=== PATIENT | male | born 1950 | race Caucasian/White ===

== ENCOUNTER 2019-12-13 08:19 | Inpatient (IN) ==
[2019-12-13] MEDS ORDERED: 0.9 % Sodium Chloride 1,000 ML IVC ONE (08:38)
[2019-12-13 09:06] LABS: Basophils % 0.4 %; Eosinophils # 0.1 K/mcL (0.0-0.6); Eosinophils % 1.2 %; Hematocrit 30.6 % (37.5-50.1); Hemoglobin 9.5 g/dL (12.9-16.9); Immature Granulocytes % 0.4 % (0-4); Lymphocytes # 1.4 K/mcL (0.6-4.6); Lymphocytes % 17.7 %; Mean Corpuscular Volume 90.3 fL (83.0-100.0); Mean Platelet Volume 9.7 fL (9.4-12.4); Monocytes # 0.6 K/mcL (0.0-1.3); Neutrophils # 5.9 K/mcL (1.6-8.9); Platelet Count 214 K/mcL (140-400); Red Blood Count 3.39 M/mcL (4.19-5.50); Red Cell Distribution Width 14.4 % (11.5-14.5); Segmented Neutrophils % 73.3 %
[2019-12-13 09:14] LABS: INR 1.2; Prothrombin Time 13.7 Seconds (9.4-12.1)
[2019-12-13 09:16] LABS: Activated Partial Thrombo Time 36.8 Seconds (26.0-36.0)
[2019-12-13 09:28] LABS: Albumin 3.9 g/dL (3.5-5.7); Albumin/Globulin Ratio 1.4 (1.1-2.2); Bilirubin,Direct 0.2 mg/dL (0.0-0.2); Bilirubin,Indirect 0.5 mg/dL (0.0-1.0); Bilirubin,Total 0.7 mg/dL (0.3-1.0); Calcium 9.5 mg/dL (8.6-10.3); Globulin 2.7 g/dL (2.4-3.5); Potassium 4.4 mEq/L (3.5-5.1); Total Protein 6.6 g/dL (6.4-8.9)
[2019-12-13] MEDS ORDERED: Lidocaine Jelly 11 ml Syringe ONE (10:29)
[2019-12-13] MEDS ORDERED: Ondansetron 4 MG/2 ML VIAL IVP PRN ×2 (10:55→14:21)
[2019-12-13] MEDS ORDERED: *HR* OxyCODONE Immed Rel 5 MG TABLET PO PRN (10:55)
[2019-12-13] MEDS ORDERED: Dexamethasone 4 MG/ML VIAL ONE (10:59)
[2019-12-13] MEDS ORDERED: *HR* Propofol 200 MG/20 ML VIAL IVP ONE (10:59)
[2019-12-13] MEDS ORDERED: *HR* Succinylcholine 200 MG/10 ML VIAL IVP ONE (10:59)
[2019-12-13] MEDS ORDERED: Lidocaine -MPF 2% 2 ML VIAL ONE (10:59)
[2019-12-13] MEDS ORDERED: ceFAZolin 3,000 MG in Water for inj. (sterile) 30 ML IVP ONE (11:26)
[2019-12-13] MEDS ORDERED: *HR* FentaNYL (PF) 100 MCG/2 ML VIAL ONE (11:31)
[2019-12-13] MEDS ORDERED: EPHEDrine 50 MG/ML VIAL ONE (11:47)
[2019-12-13] MEDS ORDERED: Isovue-300 50ML VIAL ONE (11:51)
[2019-12-13] MEDS ORDERED: CeFAZolin Syr 3,000MG/30 ML 3,000 MG/30 ML SYRINGE IVPB ONE (12:00)
[2019-12-13] MEDS ORDERED: Naloxone 0.4 MG/ML INJ IVP PRN (14:21)
[2019-12-13] MEDS: 0.9 % Sodium Chloride 1,000 ML IVC SCH (17:38)
[2019-12-13] MEDS: Pregabalin 75 MG CAPSULE PO SCH ×2 (17:38→21:56)
[2019-12-14 04:06] LABS: Basophils % 0.1 %; Eosinophils # 0.1 K/mcL (0.0-0.6); Eosinophils % 0.6 %; Hematocrit 26.4 % (37.5-50.1); Hemoglobin 8.3 g/dL (12.9-16.9); Immature Granulocytes % 0.5 % (0-4); Lymphocytes # 1.3 K/mcL (0.6-4.6); Lymphocytes % 13.6 %; Mean Corpuscular HGB Conc 31.4 g/dL (31.6-35.5); Mean Corpuscular Volume 89.2 fL (83.0-100.0); Mean Platelet Volume 10.1 fL (9.4-12.4); Monocytes # 0.5 K/mcL (0.0-1.3); Monocytes % 5.8 %; Neutrophils # 7.4 K/mcL (1.6-8.9); Platelet Count 194 K/mcL (140-400); Red Blood Count 2.96 M/mcL (4.19-5.50); Red Cell Distribution Width 14.4 % (11.5-14.5); Segmented Neutrophils % 79.4 %; White Blood Count 9.3 K/mcL (4.3-11.1)
[2019-12-14 04:22] LABS: Potassium 4.5 mEq/L (3.5-5.1)
[2019-12-14] MEDS: *HR* OxyCODONE Immed Rel 5 MG TABLET PO PRN ×2 (04:22→19:58)
[2019-12-14] MEDS: Pregabalin 75 MG CAPSULE PO SCH ×3 (08:26→22:35)
[2019-12-14] MEDS: lisinopriL 5 MG TABLET PO SCH (08:26)
[2019-12-14] MEDS: 0.9 % Sodium Chloride 1,000 ML IVC SCH ×2 (08:26→16:49)
[2019-12-14] MEDS: atenoloL 25 MG TABLET PO SCH (08:26)
[2019-12-14] MEDS: *HR* HYDROcodone/Acet 5/325 mg TABLET PO PRN (12:13)
[2019-12-14] MEDS ORDERED: *HR* Belladonna Alkaloids/Opium 30 MG RECTAL SUPPOSITORY RC PRN (22:22)
[2019-12-15] MEDS: *HR* HYDROcodone/Acet 5/325 mg TABLET PO PRN ×3 (01:03→21:40)
[2019-12-15] MEDS: 0.9 % Sodium Chloride 1,000 ML IVC SCH ×6 (01:04→20:12)
[2019-12-15 07:04] LABS: Basophils % 0.4 %; Eosinophils # 0.2 K/mcL (0.0-0.6); Eosinophils % 2.4 %; Hemoglobin 7.8 g/dL (12.9-16.9); Immature Granulocytes % 0.4 % (0-4); Lymphocytes # 2.4 K/mcL (0.6-4.6); Lymphocytes % 31.8 %; Mean Corpuscular Hemoglobin 27.1 pg (28.0-33.3); Mean Corpuscular Volume 90.3 fL (83.0-100.0); Mean Platelet Volume 10.2 fL (9.4-12.4); Monocytes # 0.4 K/mcL (0.0-1.3); Monocytes % 5.8 %; Neutrophils # 4.4 K/mcL (1.6-8.9); Nucleated Red Blood Cells 0.3 /100 WBC (0); Platelet Count 196 K/mcL (140-400); Red Blood Count 2.88 M/mcL (4.19-5.50); Red Cell Distribution Width 14.4 % (11.5-14.5); Segmented Neutrophils % 59.2 %; White Blood Count 7.4 K/mcL (4.3-11.1)
[2019-12-15 07:21] LABS: Calcium 8.8 mg/dL (8.6-10.3); Potassium 4.7 mEq/L (3.5-5.1)
[2019-12-15] MEDS: *HR* OxyCODONE Immed Rel 5 MG TABLET PO PRN ×2 (08:07→16:17)
[2019-12-15] MEDS: Pregabalin 75 MG CAPSULE PO SCH ×3 (08:08→21:34)
[2019-12-15] MEDS: atenoloL 25 MG TABLET PO SCH (08:09)
[2019-12-15] MEDS: lisinopriL 5 MG TABLET PO SCH (08:09)
[2019-12-15] MEDS ORDERED: Isovue-370 500 ML BOTTLE IVP ONE (09:26)
[2019-12-15] MEDS ORDERED: Heparin 1,000 UNITS/500 mL 500 ML ONE (10:38)
[2019-12-15] MEDS ORDERED: 0.9 % Sodium Chloride 500 ML ONE (10:38)
[2019-12-15] MEDS ORDERED: Isovue-300 50ML VIAL IVP ONE (11:40)
[2019-12-15] MEDS ORDERED: Acetaminophen 325 MG TABLET PO PRN (11:56)
[2019-12-16] MEDS: 0.9 % Sodium Chloride 1,000 ML IVC SCH ×2 (03:38→05:10)
[2019-12-16] MEDS: *HR* OxyCODONE Immed Rel 5 MG TABLET PO PRN ×2 (03:42→21:01)
[2019-12-16 04:27] LABS: Basophils % 0.3 %; Eosinophils # 0.2 K/mcL (0.0-0.6); Eosinophils % 2.5 %; Hematocrit 25.2 % (37.5-50.1); Hemoglobin 7.8 g/dL (12.9-16.9); Immature Granulocytes % 0.4 % (0-4); Lymphocytes # 1.7 K/mcL (0.6-4.6); Lymphocytes % 24.7 %; Mean Corpuscular Hemoglobin 27.9 pg (28.0-33.3); Mean Platelet Volume 9.9 fL (9.4-12.4); Monocytes # 0.5 K/mcL (0.0-1.3); Monocytes % 6.5 %; Neutrophils # 4.6 K/mcL (1.6-8.9); Platelet Count 208 K/mcL (140-400); Red Cell Distribution Width 14.4 % (11.5-14.5); Segmented Neutrophils % 65.6 %; White Blood Count 6.9 K/mcL (4.3-11.1)
[2019-12-16 04:43] LABS: Calcium 8.8 mg/dL (8.6-10.3); Potassium 4.5 mEq/L (3.5-5.1)
[2019-12-16] MEDS: Pregabalin 75 MG CAPSULE PO SCH ×3 (07:31→21:03)
[2019-12-16] MEDS: lisinopriL 5 MG TABLET PO SCH (07:31)
[2019-12-16] MEDS: atenoloL 25 MG TABLET PO SCH (07:31)
[2019-12-16] MEDS: Finasteride 5 MG TABLET PO SCH (07:32)
[2019-12-16] MEDS ORDERED: Thrombin (Bovine) 5,000 UNIT NAS.SP.SYR TP ONE (07:57)
[2019-12-16] MEDS ORDERED: Isovue-370 500 ML BOTTLE IVP ONE (13:19)
[2019-12-16 14:59] LABS: Basophils # 0.1 K/mcL (0.0-0.2); Basophils % 0.5 %; Eosinophils # 0.1 K/mcL (0.0-0.6); Hematocrit 23.6 % (37.5-50.1); Hemoglobin 7.4 g/dL (12.9-16.9); Immature Granulocytes % 0.8 % (0-4); Lymphocytes # 1.1 K/mcL (0.6-4.6); Lymphocytes % 11.7 %; Mean Corpuscular HGB Conc 31.4 g/dL (31.6-35.5); Mean Corpuscular Hemoglobin 27.2 pg (28.0-33.3); Mean Corpuscular Volume 86.8 fL (83.0-100.0); Monocytes # 0.6 K/mcL (0.0-1.3); Monocytes % 6.2 %; Neutrophils # 7.7 K/mcL (1.6-8.9); Platelet Count 223 K/mcL (140-400); Red Blood Count 2.72 M/mcL (4.19-5.50); Red Cell Distribution Width 14.3 % (11.5-14.5); Segmented Neutrophils % 79.8 %; White Blood Count 9.7 K/mcL (4.3-11.1)
[2019-12-16] MEDS ORDERED: *HR* Belladonna Alkaloids/Opium 30 MG RECTAL SUPPOSITORY RC ONE (15:39)
[2019-12-16] MEDS ORDERED: Heparin 1,000 UNITS/500 mL 500 ML ONE (15:48)
[2019-12-16] MEDS: *HR* HYDROcodone/Acet 5/325 mg TABLET PO PRN (15:58)
[2019-12-16] MEDS ORDERED: 0.9 % Sodium Chloride 500 ML ONE (16:00)
[2019-12-16] MEDS ORDERED: *HR* Midazolam HCl 2 MG/2 ML VIAL IVP ONE (16:42)
[2019-12-16] MEDS ORDERED: *HR* FentaNYL (PF) 100 MCG/2 ML VIAL IVP ONE (16:42)
[2019-12-16] MEDS ORDERED: *HR* FentaNYL (PF) 100 MCG/2 ML VIAL ONE (16:49)
[2019-12-16] MEDS ORDERED: *HR* Midazolam HCl 2 MG/2 ML VIAL ONE (16:49)
[2019-12-16] MEDS ORDERED: 0.9 % Sodium Chloride 1,000 ML ONE (17:34)
[2019-12-16] MEDS ORDERED: Isovue-300 50ML VIAL IVP ONE ×2 (18:04→18:05)
[2019-12-16] MEDS ORDERED: 0.9 % Sodium Chloride 250 ML ONE (19:53)
[2019-12-17] MEDS: 0.9 % Sodium Chloride 1,000 ML IVC SCH ×2 (00:17→07:52)
[2019-12-17 01:19] LABS: Basophils % 0.3 %; Eosinophils # 0.1 K/mcL (0.0-0.6); Eosinophils % 1.4 %; Hematocrit 21.5 % (37.5-50.1); Hemoglobin 6.8 g/dL (12.9-16.9); Immature Granulocytes % 0.4 % (0-4); Lymphocytes # 1.2 K/mcL (0.6-4.6); Lymphocytes % 17.7 %; Mean Corpuscular HGB Conc 31.6 g/dL (31.6-35.5); Mean Corpuscular Volume 88.5 fL (83.0-100.0); Mean Platelet Volume 10.2 fL (9.4-12.4); Monocytes # 0.5 K/mcL (0.0-1.3); Monocytes % 6.6 %; Neutrophils # 5.1 K/mcL (1.6-8.9); Platelet Count 191 K/mcL (140-400); Red Blood Count 2.43 M/mcL (4.19-5.50); Red Cell Distribution Width 14.3 % (11.5-14.5); Segmented Neutrophils % 73.6 %; White Blood Count 6.9 K/mcL (4.3-11.1)
[2019-12-17 01:22] LABS: Calcium 8.6 mg/dL (8.6-10.3); Potassium 4.4 mEq/L (3.5-5.1)
[2019-12-17] MEDS: *HR* OxyCODONE Immed Rel 5 MG TABLET PO PRN (06:28)
[2019-12-17] MEDS: Finasteride 5 MG TABLET PO SCH (09:58)
[2019-12-17] MEDS: Pregabalin 75 MG CAPSULE PO SCH ×3 (09:58→22:35)
[2019-12-17] MEDS: atenoloL 25 MG TABLET PO SCH (09:59)
[2019-12-17] MEDS: lisinopriL 5 MG TABLET PO SCH (09:59)
[2019-12-17] MEDS ORDERED: 0.9 % Sodium Chloride 250 ML ONE (12:12)
[2019-12-17] MEDS: Insulin LISPRO 300 UNITS/3 ML VIAL SQ SCH ×3 (12:16→22:34)
[2019-12-18] MEDS: *HR* HYDROcodone/Acet 5/325 mg TABLET PO PRN ×2 (00:51→23:05)
[2019-12-18 02:59] LABS: Basophils % 0.2 %; Eosinophils # 0.1 K/mcL (0.0-0.6); Eosinophils % 1.3 %; Hematocrit 21.4 % (37.5-50.1); Hemoglobin 6.9 g/dL (12.9-16.9); Immature Granulocytes % 0.4 % (0-4); Lymphocytes # 1.1 K/mcL (0.6-4.6); Lymphocytes % 12.8 %; Mean Corpuscular HGB Conc 32.2 g/dL (31.6-35.5); Mean Corpuscular Hemoglobin 28.9 pg (28.0-33.3); Mean Corpuscular Volume 89.5 fL (83.0-100.0); Mean Platelet Volume 9.7 fL (9.4-12.4); Monocytes # 0.6 K/mcL (0.0-1.3); Monocytes % 6.3 %; Neutrophils # 7.1 K/mcL (1.6-8.9); Platelet Count 178 K/mcL (140-400); Red Blood Count 2.39 M/mcL (4.19-5.50); Red Cell Distribution Width 14.7 % (11.5-14.5); White Blood Count 8.9 K/mcL (4.3-11.1)
[2019-12-18 03:21] LABS: Calcium 8.6 mg/dL (8.6-10.3); Potassium 4.4 mEq/L (3.5-5.1)
[2019-12-18] MEDS: Insulin LISPRO 300 UNITS/3 ML VIAL SQ SCH ×5 (07:34→23:06)
[2019-12-18] MEDS ORDERED: 0.9 % Sodium Chloride 250 ML ONE (09:17)
[2019-12-18] MEDS: lisinopriL 5 MG TABLET PO SCH (09:22)
[2019-12-18] MEDS: Finasteride 5 MG TABLET PO SCH (09:22)
[2019-12-18] MEDS: Pregabalin 75 MG CAPSULE PO SCH ×3 (09:22→19:55)
[2019-12-18] MEDS: atenoloL 25 MG TABLET PO SCH (09:22)
[2019-12-18] MEDS: *HR* OxyCODONE Immed Rel 5 MG TABLET PO PRN (15:14)
[2019-12-18 16:37] LABS: Hematocrit 29.3 % (37.5-50.1)
[2019-12-18 16:38] LABS: Hemoglobin 9.2 g/dL (12.9-16.9)
[2019-12-19 05:00] LABS: Hematocrit 23.6 % (37.5-50.1)
[2019-12-19 05:02] LABS: Hemoglobin 7.6 g/dL (12.9-16.9)
[2019-12-19 05:21] LABS: Calcium 8.6 mg/dL (8.6-10.3); Potassium 4.2 mEq/L (3.5-5.1)
[2019-12-19 06:29] VITALS: BP 115/65
[2019-12-19] MEDS: Insulin LISPRO 300 UNITS/3 ML VIAL SQ SCH (07:47)
[2019-12-19] MEDS: Finasteride 5 MG TABLET PO SCH (09:34)
[2019-12-19] MEDS: lisinopriL 5 MG TABLET PO SCH (09:34)
[2019-12-19] MEDS: Pregabalin 75 MG CAPSULE PO SCH (09:34)
[2019-12-19] MEDS: atenoloL 25 MG TABLET PO SCH (09:35)
== END 2019-12-19 11:41 | disposition home or self-care (01) | DRG 661 ==
LOC: EMEROOARM 08:19 → CDU 08:19 → 3ANU 12-14 20:50
PROVIDERS: ADMIT Urology; ATTEND Urology
PROC: IRFLUID (2019-12-16 12:00)